=== PATIENT | female | born 1945 | race African-American/Black ===

== ENCOUNTER 2018-02-22 09:44 | Inpatient (IN) | payer BC, OTHER ==
[2018-02-10 16:32] VITALS: BMI 31.6
[2018-02-22] MEDS ORDERED: MIDAZOLAM HCL 2 MG/2 ML SINGLE DOSE VIAL ONE ×4 (10:34→16:23)
[2018-02-22] MEDS ORDERED: CEFAZOLIN 2 GM in DEXTROSE 5%-WATER - 50 ML IVPB ONE (12:00)
[2018-02-22] MEDS ORDERED: VANCOMYCIN 1,250 MG in DEXTROSE 5%-WATER - 250 ML IVPB ONE (12:00)
[2018-02-22] MEDS ORDERED: SODIUM CHLORIDE 0.9% P/F 10 ML VIAL IJ ONE ×2 (14:33→17:39)
[2018-02-22] MEDS ORDERED: BUPIVACAINE LIPOSOME/PF (EXPAREL) 266 MG/20 ML VIAL ONE (14:33)
[2018-02-22] MEDS ORDERED: BUPIVACAINE HCL/PF 2.5 MG/ML - 30 ML VIAL IJ ONE (14:33)
[2018-02-22] MEDS ORDERED: BUPIVACAINE HCL/PF 0.5% (5MG/ML) 10 ML VIAL ONE (15:03)
[2018-02-22] MEDS ORDERED: PROPOFOL 20 ML ONE ×3 (15:04)
[2018-02-22] MEDS ORDERED: ceFAZolin SODIUM 1 GM VIAL ONE (15:54)
[2018-02-22] MEDS ORDERED: DEXAMETHASONE SOD PHOSPHATE 4 MG/1 ML VIAL ONE (15:54)
[2018-02-22] MEDS ORDERED: ONDANSETRON 4 MG/2 ML VIAL ONE (15:54)
[2018-02-22] MEDS ORDERED: SUCCINYLCHOLINE CHLORIDE 200 MG/10 ML VIAL ONE (15:56)
[2018-02-22] MEDS ORDERED: VANCOMYCIN 1,000 MG VIAL (RESTRICTED TO ID ONLY) ONE (16:07)
[2018-02-22] MEDS ORDERED: LACTATED RINGERS SOLUTION 1,000 ML IV SCH ×2 (17:15→18:00)
[2018-02-22] MEDS ORDERED: ONDANSETRON 4 MG/2 ML VIAL IVPUSH PRN ×2 (17:15→17:58)
[2018-02-22] MEDS ORDERED: KETOROLAC TROMETHAMINE 60 MG/2 ML VIAL ONE (17:15)
[2018-02-22] MEDS ORDERED: morphine CARPU-JECT 10 MG/1 ML DISP.SYRIN ONE ×2 (17:16→17:39)
[2018-02-22] MEDS ORDERED: oxyCODONE HCL 5 MG TABLET PO PRN (17:16)
[2018-02-22] MEDS ORDERED: TRANEXAMIC ACID 1000 MG/10 ML VIAL ONE (17:28)
[2018-02-22] MEDS ORDERED: EPINEPHrine/PF 1 MG/1 ML (1:1,000) AMPULE ONE (17:30)
[2018-02-22] MEDS ORDERED: MAG HYDROX/AL HYDROX/SIMETH 30 ML UNIT-DOSE CUP PO PRN (17:58)
[2018-02-22] MEDS ORDERED: MAGNESIUM HYDROX 2400MG/30ML ORAL SUSPENSION 30 ML CUP PO PRN (17:58)
--- NOTE | 2018-02-22 18:04 | PN ---
Progress Note (short form) - Note Progress Note: 72F s/p R TKA POD #0. -Pain control. -DVT PPx: -Chemical: ASA 81mg BID x 6 weeks post-op. -Mechanical: OLGA's, SCD's. -Incentive spirometry. -PT/OT/Rehab, OOB. -WBAT RLE. -Post-op Ancef x 2 doses. -f/u post-op TOV. -f/u AM labs. -Diet. -Care per medical hospitalist team. -Discharge planning: home with services; f/u [facility] [place] office Tue03/03/2018, call for appointment: . -Will follow. Lito Mares MD (Orthopaedic Surgery).
--- NOTE | 2018-02-22 18:08 | OP ---
Operative Note - Note: Operative Date: 02/22/18 Pre-Operative Diagnosis: R knee DJD. Operation: Right total knee replacement Implants: [place] [employer]. Femur - 3. Tibia - 4. Poly - 11mm, PS. Patella - 27mm, symmetric Surgeon: Lito Mares Surgical Assistant: Ike Mares Anesthesiologist/MEDICAL ADMINISTRATIVE SPECIALIST: Surya Lorenzo Anesthesia: Spinal Specimens Removed: Bone, soft tissue Estimated Blood Loss (mls): 0 Fluid Volume Replaced (mls): 1,000 (Crystalloid) Operative Report Dictated: Yes
[2018-02-22] MEDS: ACETAMINOPHEN 325 MG TABLET (FP) PO SCH ×2 (19:15→23:45)
--- NOTE | 2018-02-22 21:31 | CONSULT ---
Consultation: REQUESTING PROVIDER:Dr. Mares CONSULT REQUEST: We have been asked to medically evaluate this patient for medical management. HISTORY OF PRESENT ILLNESS: Mae Drake is a 72 yr old F, no significant medical condition hx of right knee arthritis, admitted for elective surgery right knee arthroplasty. Patient seen at bedside, asleep, arousable, no complaints. Denies sob, chest pain, dizziness, sleep apnea. REVIEW OF SYSTEMS: CONSTITUTIONAL: Absent: fever, chills, diaphoresis, generalized weakness, malaise, loss of appetite, weight change HEENT: Absent: rhinorrhea, nasal congestion, throat pain, throat swelling, difficulty swallowing, mouth swelling, ear pain, eye pain, visual changes CARDIOVASCULAR: Absent: chest pain, syncope, palpitations, irregular heart rate, lightheadedness , peripheral edema RESPIRATORY: Absent: cough, shortness of breath, dyspnea with exertion, orthopnea, wheezing, stridor, hemoptysis GASTROINTESTINAL: Absent: abdominal pain, abdominal distension, nausea, vomiting, diarrhea, constipation, melena, hematochezia GENITOURINARY: Absent: dysuria, frequency, urgency, hesitancy, hematuria, flank pain, genital pain MUSCULOSKELETAL: Absent: myalgia, arthralgia, joint swelling, back pain, neck pain SKIN: Absent: rash, itching, pallor HEMATOLOGIC/IMMUNOLOGIC: Absent: easy bleeding, easy bruising, lymphadenopathy, frequent infections ENDOCRINE: Absent: unexplained weight gain, unexplained weight loss, heat intolerance, cold intolerance NEUROLOGIC: Absent: headache, focal weakness or paresthesias, dizziness, unsteady gait, seizure, mental status changes, bladder or bowel incontinence PSYCHIATRIC: Absent: anxiety, depression, suicidal or homicidal ideation, hallucinations. PHYSICAL EXAMINATION Vital Signs - 24 hr 02/22/18 02/22/18 02/22/18 11:16 18:50 18:55 Temperature 98.2 F 97.8 F Pulse Rate 69 89 70 Respiratory 20 14 15 Rate Blood Pressure 118/71 121/73 121/66 O2 Sat by Pulse 99 100 Oximetry (%) 02/22/18 02/22/18 02/22/18 19:00 19:05 19:10 Temperature Pulse Rate 70 76 88 Respiratory 16 16 16 Rate Blood Pressure 113/73 116/60 114/66 O2 Sat by Pulse 100 100 100 Oximetry (%) 02/22/18 02/22/18 02/22/18 19:25 19:40 19:55 Temperature 97.8 F 97.8 F 97.8 F Pulse Rate 67 62 60 Respiratory 16 16 16 Rate Blood Pressure 113/75 116/60 118/62 O2 Sat by Pulse 100 100 100 Oximetry (%) 02/22/18 02/22/18 20:10 20:25 Temperature 97.8 F 97.8 F Pulse Rate 52 L 52 L Respiratory 16 16 Rate Blood Pressure 108/63 108/63 O2 Sat by Pulse 100 Oximetry (%) GENERAL: Awake, alert, and fully oriented, in no acute distress. HEAD: Normal with no signs of trauma. EYES: Pupils equal, round and reactive to light, extraocular movements intact, sclera anicteric, conjunctiva clear. No lid lag. EARS, NOSE, THROAT: Ears normal, nares patent, oropharynx clear without exudates. Moist mucous membranes. NECK: Normal range of motion, supple without lymphadenopathy, JVD, or masses. LUNGS: Breath sounds equal, clear to auscultation bilaterally. No wheezes, and no crackles. No accessory muscle use. HEART: Regular rate and rhythm, normal S1 and S2 without murmur, rub or gallop. ABDOMEN: Soft, nontender, not distended, normoactive bowel sounds, no guarding, no rebound, no masses. No hepatomegaly or splenomegaly. MUSCULOSKELETAL: Normal range of motion at all joints. No bony deformities or tenderness. No CVA tenderness. UPPER EXTREMITIES: 2+ pulses, warm, well-perfused. No cyanosis. No clubbing. Cap refill <2 seconds. No peripheral edema. LOWER EXTREMITIES: 2+ pulses, warm, well-perfused. No calf tenderness. No peripheral edema. NEUROLOGICAL: Cranial nerves II-XII intact. Normal speech. Normal gait. PSYCHIATRIC: Cooperative. Good eye contact. Appropriate mood and affect. SKIN: Warm, dry, normal turgor, no rashes or lesions noted. Laboratory Results - last 24 hr 02/22/18 12:13 HIV 1&2 Antibody Screen Negative HIV P24 Antigen Negative Active Medications Generic Name Dose Route Start Last Admin Trade Name Freq PRN Reason Stop Dose Admin Acetaminophen 650 mg 02/22/18 17:30 02/22/18 19:15 Tylenol - PO 02/25/18 17:29 650 mg Q6H BEE Administration Al Hydroxide/Mg Hydroxide 30 ml 02/22/18 17:58 Mylanta Oral Suspension - PO Q4H PRN DYSPEPSIA Aspirin 81 mg 02/22/18 22:00 Ecotrin - PO BID [facility] Fentanyl 50 mcg 02/22/18 17:15 Sublimaze Injection - IVPUSH Q5M PRN PAIN-PACU ORDER X 4 DOSES ONLY Cefazolin Sodium/Dextrose 2 gm in 50 mls @ 200 mls/hr 02/23/18 03:00 Ancef 2 Gm Premixed Ivpb - IVPB 02/23/18 11:14 Q8H [facility] Lactated Ringer's 1,000 mls @ 125 mls/hr 02/22/18 18:00 Lactated Ringers Solution IV 02/23/18 06:00 ASDIR [facility] Magnesium Hydroxide 30 ml 02/22/18 17:58 Milk Of Magnesia - PO PRN PRN CONSTIPATION Ondansetron HCl 4 mg 02/22/18 17:58 Zofran Injection IVPUSH Q6H PRN NAUSEA Oxycodone HCl 5 mg 02/22/18 17:16 Roxicodone - PO Q3H PRN PAIN LEVEL 1-5 Oxycodone HCl 10 mg 02/22/18 17:16 Roxicodone - PO Q3H PRN PAIN LEVEL 6-10 Pantoprazole Sodium 40 mg 02/23/18 10:00 Protonix - PO DAILY [facility] Senna/Docusate Sodium 2 tablet 02/22/18 22:00 Pericolace - PO BID [facility] Mae Drake is a 72 yr old F, hx of right knee arthritis, Assessment/Plan: #S/P right knee TKA -pain mgt -GI/DVT prophylaxis as per Ortho -inc spirometer -monitor labs post op -PT/OT -dc planning as per Ortho Dispo: We will continue to follow the patient. Thank you for this consultative opportunity. Visit type - Emergency Visit Emergency Visit: No - New Patient This patient is new to me today: Yes Date on this admission: 02/22/18 - Critical Care Critical Care patient: No
[2018-02-22] MEDS: SENNOSIDES/DOCUSATE COMBO (SENNA PLUS) TABLET (UD) PO SCH (23:00)
[2018-02-22] MEDS: ASPIRIN COATED 81 MG TABLET.EC PO SCH (23:07)
[2018-02-23] MEDS: oxyCODONE HCL 5 MG TABLET PO PRN ×6 (02:13→21:44)
[2018-02-23] MEDS: CEFAZOLIN 2 GM/D5W 2 GM/50 ML ML IVPB SCH ×2 (02:13→11:36)
[2018-02-23] MEDS: ACETAMINOPHEN 325 MG TABLET (FP) PO SCH ×3 (04:54→17:32)
--- NOTE | 2018-02-23 08:02 | OP ---
DATE OF OPERATION: 02/22/2018 SURGEON: Lito Mares MD SENIOR BUSINESS DEVELOPMENT ANALYST: Ike Mares MD and JENAE Dial PREOPERATIVE DIAGNOSIS: Tricompartmental osteoarthritis with fixed valgus deformity, knee. POSTOPERATIVE DIAGNOSIS: Tricompartmental osteoarthritis with fixed valgus deformity, knee. OPERATION PERFORMED: Right posterior-stabilized total knee arthroplasty (Matthew). ANESTHESIA: Conscious sedation with spinal anesthesia as well as peripheral nerve block. ANTIBIOTICS GIVEN: Kefzol 2 g, vancomycin 1 g, Kefzol 1 g given at the end of the procedure. OPERATION DETAILS: Patient correctly identified, brought to the operating room. Timeout was called. The right lower extremity was prepped, free draped in the routine manner with Betadine scrub solution, wiped off with alcohol, DuraPrep applied. Midline incision was utilized. The incision was taken through the subcutaneous tissue to the quadriceps tendon, the entire quadriceps mechanism. Longitudinal incision made into the quadriceps tendon, skirting around the medial aspect of the patella to the medial aspect of the tibial tubercle. The soft tissue was lifted off the bone, exposing the proximal medial aspect of the bone bed accordingly. The knee was flexed. The patella capsized. The patella was first dealt with by resecting the retropatellar surface using [place] line from patella ligament to quadriceps tendon. The jig applied and drilled for a size 27-mm patellar button. Once that had been performed, the tibial cut was made. This was cut to the baseplate of the anterior cruciate ligament to the middle of the talus with extramedullary jig alignment, and the appropriate 2-3 mm of proximal tibial surface resected appropriately to give a good flat cut. The femoral jigs were then inserted. The size tibia measured size 4, and the femur measured, after the appropriate jig cuts made, a size 3 femoral component. Flexion and extension gaps were even at 11 mm, and everything appeared balanced. Alignment was excellent in coronal and sagittal plane. Once that had been performed, the trialing was noted and revealed excellent patellar tracking with a negative thumb test, and once we were satisfied with all of this and complete debridement of the soft tissue elements, cementing was in 1 stage after the bone bed was thoroughly lavaged and dried appropriately with the patella, tibia, and femur all seated sequentially in that order. All extraneous cement was removed after the cement had cured. A size 11-mm polyethylene posterior-stabilized implant tibial component inserted. Tracking was excellent. Full range of movement noted on the table and completely stable. The wounds were thoroughly lavaged. Closure quadriceps tendon 1 Vicryl, subcutaneous 1 Vicryl, skin 3-0 Monocryl with Steri-Strips. No drainage utilized. Operation went well. No complications. MD ANGLE Mckinney/[id number]
[2018-02-23 08:34] LABS: HEMATOCRIT 36.2 % (32.4-45.2); HEMOGLOBIN 11.7 GM/dl (10.7-15.3); MCH 27.8 pg (25.7-33.7); MCHC 32.4 g/dl (32.0-36.0); MEAN CELL VOLUME 85.7 fl (80-96); MEAN PLT VOLUME 8.2 fl (7.5-11.1); PLATELET COUNT 150 K/MM3 (134-434); RBC 4.22 M/mm3 (3.60-5.2); RDW 14.7 % (11.6-15.6)
[2018-02-23 08:42] LABS: ANION GAP 8 MMOL/L (8-16); BLOOD UREA NITROGEN 12 mg/dl (7-18); CALCIUM 9.1 mg/dl (8.4-10.2); CHLORIDE 101 mmol/L (98-107); CO2 27 mmol/L (22-28); CREATININE 0.8 mg/dl (0.6-1.3); GLUCOSE,RANDOM 142 mg/dl (74-106); POTASSIUM 4.5 mmol/L (3.5-5.1); SODIUM 136 mmol/L (136-145)
[2018-02-23] MEDS: ASPIRIN COATED 81 MG TABLET.EC PO SCH ×2 (09:11→21:24)
[2018-02-23] MEDS: SENNOSIDES/DOCUSATE COMBO (SENNA PLUS) TABLET (UD) PO SCH ×2 (09:11→21:24)
[2018-02-23] MEDS: PANTOPRAZOLE 40 MG TABLET (FP) PO SCH (09:11)
--- NOTE | 2018-02-23 11:24 | PN ---
Progress Note (short form) - Note Progress Note: POD #1 - s/p right total knee replacement under spinal anesthesia with peripheral nerve block. VSS. Pt. doing well, resting comfortably in chair. Had physical therapy earlier with some pain, but overall good pain control. No apparent anesthetic complications noted. Continue current care.
--- NOTE | 2018-02-23 12:05 | PN ---
Physical Exam: SUBJECTIVE: Patient seen and examined. Complains of pain after PT despite receiving oxycodone 10mg, ice pack, and elevation. OBJECTIVE: Vital Signs Period Temp Pulse Resp BP Sys/Delvalle Pulse Ox Last 24 Hr 97.8 F-98.2 F 52-89 14-18 108-121/60-75 99-100 GENERAL: The patient is awake, alert, and fully oriented, in no acute distress. HEAD: Normal with no signs of trauma. EYES: PERRL, extraocular movements intact, sclera anicteric, conjunctiva clear. No ptosis. ENT: Ears normal, nares patent, oropharynx clear without exudates, moist mucous membranes. NECK: Trachea midline, full range of motion, supple. LUNGS: Breath sounds equal, clear to auscultation bilaterally, no wheezes, no crackles, no accessory muscle use. HEART: Regular rate and rhythm, S1, S2 without murmur, rub or gallop. ABDOMEN: Soft, nontender, nondistended, normoactive bowel sounds, no guarding, no rebound, no hepatosplenomegaly, no masses. EXTREMITIES: 2+ pulses, warm, well-perfused, no edema. Incision clean and dry. NEUROLOGICAL: Cranial nerves II through XII grossly intact. Normal speech, gait not observed. PSYCH: Normal mood, normal affect. SKIN: Warm, dry, normal turgor, no rashes or lesions noted Laboratory Results - last 24 hr 02/22/18 02/23/18 02/23/18 12:13 08:17 08:17 WBC 8.0 RBC 4.22 Hgb 11.7 Hct 36.2 MCV 85.7 MCH 27.8 MCHC 32.4 RDW 14.7 Plt Count 150 MPV 8.2 Sodium 136 Potassium 4.5 Chloride 101 Carbon Dioxide 27 Anion Gap 8 BUN 12 Creatinine 0.8 Creat Clearance w eGFR > 60 Random Glucose 142 H Calcium 9.1 HIV 1&2 Antibody Screen Negative HIV P24 Antigen Negative Active Medications Generic Name Dose Route Start Last Admin Trade Name Freq PRN Reason Stop Dose Admin Acetaminophen 650 mg 02/22/18 17:30 02/23/18 11:36 Tylenol - PO 02/25/18 17:29 650 mg Q6H BEE Administration Al Hydroxide/Mg Hydroxide 30 ml 02/22/18 17:58 Mylanta Oral Suspension - PO Q4H PRN DYSPEPSIA Aspirin 81 mg 02/22/18 22:00 02/23/18 09:11 Ecotrin - PO 81 mg BID BEE Administration Magnesium Hydroxide 30 ml 02/22/18 17:58 Milk Of Magnesia - PO PRN PRN CONSTIPATION Ondansetron HCl 4 mg 02/22/18 17:58 Zofran Injection IVPUSH Q6H PRN NAUSEA Oxycodone HCl 5 mg 02/22/18 17:16 Roxicodone - PO Q3H PRN PAIN LEVEL 1-5 Oxycodone HCl 10 mg 02/22/18 17:16 02/23/18 11:35 Roxicodone - PO 10 mg Q3H PRN Administration PAIN LEVEL 6-10 Pantoprazole Sodium 40 mg 02/23/18 10:00 02/23/18 09:11 Protonix - PO 40 mg DAILY BEE Administration Senna/Docusate Sodium 2 tablet 02/22/18 22:00 02/23/18 09:11 Pericolace - PO 2 tablet BID BEE Administration ASSESSMENT/PLAN: Healthy 72-year-old female s/p right TKR. -Patient with breakthrough pain - add Ofirmev 1g x 1 dose -Continue ice, elevation, standing Tylenol, oxycodone -Continue Senna/Colace -ASA 81mg bid for DVT ppx DISPO: Anticipate dc to rehab. Dispo: We will continue to follow the patient. Thank you for this consultative opportunity. Visit type - Emergency Visit Emergency Visit: No - New Patient This patient is new to me today: Yes Date on this admission: 02/23/18 - Critical Care Critical Care patient: No - Discharge Referral Referred to [facility] No
[2018-02-23] MEDS ORDERED: ACETAMINOPHEN 1000 MG/100 ML VIAL (NON FORMULARY) IVPB ONE (14:00)
--- NOTE | 2018-02-23 16:58 | PN ---
Progress Note (short form) - Note Progress Note: POD#1 PT seen this am. Pain level not greater than 5. No CP/SOB. OOB and ambulated to the restroom. Vital Signs Period Temp Pulse Resp BP Sys/Delvalle Pulse Ox Last 24 Hr 97.8 F-98.2 F 52-91 14-20 108-133/54-75 99-100 GEN: A&0x3, NAD CV: RRR Lungs: CTA b/l ABD: soft, non-distended, non-tender LE: Right dressing c/d/i, 5/5 dorsi/plantar flexionb/l. CBC, BMP 02/23/ 08:17 02/23/ 08:17 A/p: 72 yo female POD#1s/p R THR OOB and ambulate with PT/Inspector Balance Truing Resume oral medications DVT ppx with aspirin 81 mg BID Pain medications as needed for pain D/w Dr. Mares
[2018-02-23] MEDS ORDERED: oxyCODONE HCL 5 MG TABLET ONE (21:43)
[2018-02-24] MEDS: ACETAMINOPHEN 325 MG TABLET (FP) PO SCH ×3 (00:27→12:01)
[2018-02-24] MEDS: oxyCODONE HCL 5 MG TABLET PO PRN ×3 (03:16→12:29)
[2018-02-24 08:33] LABS: HEMATOCRIT 36.1 % (32.4-45.2); HEMOGLOBIN 11.5 GM/dl (10.7-15.3); MCHC 31.8 g/dl (32.0-36.0); MEAN CELL VOLUME 84.7 fl (80-96); MEAN PLT VOLUME 8.2 fl (7.5-11.1); PLATELET COUNT 171 K/MM3 (134-434); RBC 4.26 M/mm3 (3.60-5.2); RDW 14.8 % (11.6-15.6); WHITE BLOOD COUNT 9.7 K/mm3 (4.0-10.8)
--- NOTE | 2018-02-24 09:20 | DS ---
"Physical Exam: SUBJECTIVE: Patient seen and examined she is without complaints. OOB to chair this am. OBJECTIVE: Vital Signs Period Temp Pulse Resp BP Sys/Delvalle Pulse Ox Last 24 Hr 98.1 F-98.8 F 82-91 18-20 121-140/54-64 95-98 PHYSICAL EXAM GENERAL: The patient is awake, alert, and fully oriented, in no acute distress. LUNGS: Breath sounds equal, clear to auscultation bilaterally, no wheezes, no crackles, no accessory muscle use. HEART: Regular rate and rhythm, S1, S2 without murmur, rub or gallop. ABDOMEN: Soft, nontender, nondistended, normoactive bowel sounds. EXTREMITIES: 2+ pulses, warm, well-perfused, no edema to below the knee. Right knee with mild swelling. Soft no ecchymosis noted. Operative dressing site c/d/ i. 5/5 dorsi/plantar flexion b/l. PSYCH: Normal mood, normal affect. LABS Laboratory Results - last 24 hr 02/24/18 08:00 WBC 9.7 RBC 4.26 Hgb 11.5 Hct 36.1 MCV 84.7 MCH 27.0 MCHC 31.8 L RDW 14.8 Plt Count 171 MPV 8.2 HOSPITAL COURSE: The patient was admitted to the Med-Surg Unit after an elective repair of their Right knee DJD. Now, s/p Right TRK. An xray was obtained in the OR and confirmed hardware placementin good position with no fractures or dislocations. The day of surgery, the patient ambulated to the restroom with assistance.. Narcotic and non-narcotic pain management control was achieved with an oral and IV approach. Dianna-operative IV ABX were administered. DVT prophylaxis was achieved with SCDs, early ambulation and aspirin 81 mg oral two times daily.The patient ambulated with Physical Therapy and no services and home Physical therapy was recommended. Narcotic scripts and or muscle relaxants were checked with [facility] prior to escibe. The discharge instructions and an oral pain management plan were reviewed with the patient. All questions answered. Above plan discussed with Dr. Mares and agreed. Date of Admission:02/22/18 Date of Discharge: 02/24/18 Minutes to complete discharge: 30 Discharge Summary Reason For Visit: OSTEOARTHRITIS, RIGHT KNEE Condition: Stable - Instructions Diet, Activity, Other Instructions: Dr. Mares Discharge Instructions for Knee Replacement Post Operative Instructions Physical activity Physical Therapist will come to your home for the first 5 days. You will be set up with outpatient PT at your first post-operative visit. Use assistive devices for ambulation at all times. Weight bearing as tolerated on your surgical side. Do not put pillow under knee. May put pillow under heel. Wound care Leave your surgical dressing in place. Do not change the dressing until seen by your surgeon in the office. No baths or showers. Do not submerge your incision. Do not apply any ointments or lotions to your incision. Please call the office if your dressing is soiled/dirty or is falling off. Apply Graduated Compression Stockings (TEDS) to both lower extremities - remove daily for hygiene ONLY. Diet There are no dietary restrictions. Eat healthy, high-fiber foods. Drink 6 to 8 glasses of liquid each day. This will assist in keeping your bowels are regular. Pain management Any pain prescription medication ordered should be taken as prescribed for moderate to severe pain. Do not take additional Tylenol while taking Percocet. Take Aspirin 81 mg two times a day for a total of 6 weeks to prevent blood clots. Call Dr. Mares for any of the following: Severe pain not relieved by medication Fever of 101 or higher Excessive bleeding or drainage on dressing Inability to urinate If you experience chest pain or shortness of breath, please seek emergency care immediately. Please call the office at to confirm your post-op appointment for the week following surgery. This report was requested by: Keturah Berkowitz | Reference #: [id number] - Home Medications Comprehensive Discharge Medication List: Ambulatory Orders Acetaminophen [Tylenol] 1 tab PO DAILY 02/10/18 Ascorbate Calcium [Vitamin C] 1 each PO DAILY 02/10/18 Cholecalciferol (Vitamin D3) [Vitamin D3] 1,000 unit PO DAILY 02/10/18 Cinnamon Bark [Cinnamon] 1 each PO DAILY 02/10/18 Cyanocobalamin [Vitamin B12 -] 1,000 mcg PO DAILY 02/10/18 Ferrous Sulfate [Iron] 1 each PO DAILY 02/10/18 Multivitamins [Tab-A-Vit -] 1 tab PO DAILY 02/10/18 Vitamin A 10,000 unit PO DAILY 02/10/18 Vitamin E 1 each PO DAILY 02/10/18 This patient is new to me today: No Emergency Visit: No Critical Care patient: No - Discharge Referral Referred to [facility] No"
[2018-02-24] MEDS: SENNOSIDES/DOCUSATE COMBO (SENNA PLUS) TABLET (UD) PO SCH (10:03)
[2018-02-24] MEDS: ASPIRIN COATED 81 MG TABLET.EC PO SCH (10:03)
[2018-02-24] MEDS: PANTOPRAZOLE 40 MG TABLET (FP) PO SCH (10:04)
[2018-02-24 10:34] VITALS: BP 132/55; PULSE 63; TEMP 98.7
--- NOTE | 2018-03-01 13:42 | PATH ---
Surgical Pathology Report Patient Name: ARELY MCKEON Med. Rec. #: [id number] /Age/Gender: 1945 (Age: 72) / F Account: [id number] Location: [facility] MED-SURG Taken: 02/22/2018 Received: 02/22/2018 Reported: 03/01/2018 Physicians: Lito Mares M.D. Specimen(s) Received RIGHT KNEE BONE Clinical History Right knee osteoarthritis Final Diagnosis BONE, RIGHT KNEE, TOTAL KNEE REPLACEMENT: DEGENERATIVE JOINT DISEASE. Electronically Signed Phyllis Beltre M.D. Gross Description Received in formalin labeled "bone right knee," is a 10.5 x 8.5 x 2.0 cm aggregate of multiple portions of bone and soft tissue. The tibial plateau measures 8.0 x 5.5 x 1.7 cm. There is a 1.2 cm in greatest dimension area of eburnation present. The remaining articular surfaces are escobar-yellow and diffusely granular. The underlying trabecular bone is yellow and hard. Wine Steward sections are submitted in one cassette, following decalcification. 02/24/2018 [facility]02/24/2018
== END 2018-02-24 14:08 | disposition home or self-care (01) | DRG 470 ==
LOC: FM/S 09:44
PROVIDERS: ADMIT Orthopaedic Surgery Orthopaedic Surgery of the Spine; ATTEND Orthopaedic Surgery Orthopaedic Surgery of the Spine
PROC: 0SRC0J9 Replacement of Right Knee Joint with Synthetic Substitute, Cemented, Open Approach (ICD-10-PCS; principal; 2018-02-22 16:45)
DX: M17.11 Unilateral primary osteoarthritis, right knee (principal); M21.061 Valgus deformity, not elsewhere classified, right knee
CPT/HCPCS: 36415; 73560-TC-RT-FY; 80048; 85027; 86803; 87389; 88304-TC; 88311-TC; 94760; 97116-GP; 97162-GP; J0131